=== PATIENT | female | born 2000 | race Caucasian/White ===

== ENCOUNTER 2021-07-16 05:03 | Emergency (ER) | payer MEDICAID ==
[~2021-07-16] VITALS: Ht 170.2 cm; Wt 81.4 kg
[2021-07-16] MEDS ORDERED: KETOROLAC 15MG/ML VIAL IM ONE (07:00)
[2021-07-16] MEDS ORDERED: LORAZEPAM 1MG TABLET PO ONE (07:30)
[2021-07-16] MEDS ORDERED: ACET-2708 MT (08:24)
[2021-07-16 09:02] VITALS: BP 136/72
== END 2021-07-16 09:03 | disposition home or self-care (01) ==
LOC: ER 05:03 → EDBD 05:03 → ER 09:03
DX: M54.5 Low back pain (principal); M06.9 Rheumatoid arthritis, unspecified; Z88.0 Allergy status to penicillin
CPT/HCPCS: 96372; 99283; J1885